=== PATIENT | male | born 1985 | race Caucasian/White ===

== ENCOUNTER 2024-09-21 09:23 | Outpatient (CLI) | payer OTHER, SELFPAY | END 2024-09-21 09:24 | disposition home or self-care (01) | PROVIDERS: PCP Family Medicine; Visit Provider Family Medicine | DX: K52.9 Noninfective gastroenteritis and colitis, unspecified (principal) | CPT/HCPCS: 86364 ==

== ENCOUNTER 2024-09-22 16:42 | Outpatient (CLI) | payer OTHER, SELFPAY | END 2024-09-22 16:43 | disposition home or self-care (01) | LOC: NFLDREF 10-06 00:01 | PROVIDERS: PCP Family Medicine; Referring Provider Family Medicine; Visit Provider Family Medicine | DX: K52.9 Noninfective gastroenteritis and colitis, unspecified (principal) | CPT/HCPCS: 87045; 87046; 87177; 87209; 87329; 87338; 87427 ==

== ENCOUNTER 2025-04-08 14:12 | Outpatient (CLI) | payer OTHER, SELFPAY ==
--- NOTE | 2025-04-08 14:30 | CRLHL7_ITS ---
For Patients: As a result of the Century Cures Act, medical imaging exams and procedure reports are released immediately into your electronic medical record. You may view this report before your referring provider. If you have questions, please contact your health care provider. Indication: Headaches. Technique: Noncontrast sagittal T1, axial FLAIR, T2, diffusion weighted sequences are provided. No comparisons. Findings: The ventricles, sulci and gyri are normal size, shape and contour for age. The midline structures are centrally located with no evidence of shift. There are no suspicious intra or extra-axial fluid collections. No region of restricted diffusion. Expected flow voids in the cavernous carotids and basilar artery. Moderate mucosal thickening within the ethmoid air cells. Mild mucosal thickening within the floor of the maxillary sinuses and frontal sinuses. Impression: 1. No radiographic evidence of acute intracranial abnormalities. 2. Poly sinusitis with the ethmoid sinuses being most severely affected. Dictated by Haim Rodriguez MD @ 04/08/2025 9:32:28 PM (Electronically Signed)
== END 2025-04-08 14:13 | disposition home or self-care (01) ==
LOC: MRI 14:13
PROVIDERS: PCP Family Medicine; Visit Provider Family Medicine
DX: G43.009 Migraine without aura, not intractable, without status migrainosus (principal); J32.2 Chronic ethmoidal sinusitis
CPT/HCPCS: 70551